=== PATIENT | female | born 1935 | race Hispanic/Latino ===

== ENCOUNTER 2017-11-21 15:07 | Inpatient (IN) | payer OTHER, MEDICARE ==
[~2017-11-21] VITALS: Ht 152.4 cm; Wt 45.4 kg
[2017-11-21 16:44] LABS: BASOPHILS % (AUTO) 0.1 % (0.0-5.0); EOSINOPHILS % (AUTO) 0.1 % (0.0-8.0); HEMATOCRIT 30.2 % (36-48); MEAN CORPUSCULAR HEMOGLOBIN 27.5 pg (27.0-33.0); MEAN CORPUSCULAR VOLUME 83.3 fL (79-99); MONOCYTES % (AUTO) 6.7 % (3.0-13.0); NEUTROPHILS % (AUTO) 86.1 % (40.0-77.0); PLATELET COUNT (AUTO) 329 K/uL (130-400); RED BLOOD CELL COUNT(AUTO) 3.63 MIL/uL (4.00-5.50); WHITE BLOOD COUNT (AUTO) 13.6 K/uL (4.8-10.8)
[2017-11-21 16:54] LABS: CREATININE 0.5 mg/dL (0.5-1.5); POTASSIUM 3.7 mmol/L (3.5-5.1)
[2017-11-21] MEDS ORDERED: KETOROLAC TROMETHAMINE 15MG/ML ONE (17:30)
[2017-11-21 17:51] LABS: APPEARANCE,URINE Clear (CLEAR); BILIRUBIN,URINE Negative (NEGATIVE); COLOR,URINE Yellow (YELLOW); GLUCOSE, URINE (UA) Negative (NEGATIVE); KETONES,URINE Negative (NEGATIVE); LEUKOCYTE ESTERASE ,URINE Negative (NEGATIVE); NITRATE,URINE Negative (NEGATIVE); OCCULT BLOOD,URINE Small (NEGATIVE); PROTEIN,URINE Negative (NEGATIVE); UROBILINOGEN,URINE 0.2 mg/dL (0.2-1.0)
[2017-11-21 18:06] LABS: BACTERIA,URINE None Seen /HPF (None Seen); RBC,URINE 0-1 /HPF (0-1); WBC,URINE 0-1 /HPF (0-1)
[2017-11-21 18:07] LABS: PARTIAL THROMBOPLASTIN TIME 25.2 SEC (26.3-35.5); PROTHROMBIN TIME 10.5 SEC (9.6-11.6)
[2017-11-21] MEDS ORDERED: LACTATED RINGERS 1000ML 1,000 ML IV ONE (20:04)
[2017-11-21] MEDS ORDERED: ONDANSETRON HCL 4 MG/2 ML VIAL ONE (22:24)
[2017-11-21] MEDS ORDERED: MORPHINE SULFATE 2 MG/ML 1ML SYG ONE (22:24)
[2017-11-21] MEDS ORDERED: ETOMIDATE 2 MG/ML 10 ML VIAL ONE (22:24)
[2017-11-22] VITALS (23 sets, daily range): BP systolic 92–165; BP diastolic 42–91
[2017-11-22] MEDS ORDERED: ONDANSETRON HCL MDV 20ML 2 MG/ML VIAL IVP PRN (04:00)
[2017-11-22] MEDS ORDERED: LACTATED RINGERS 1000ML 1,000 ML IV SCH ×2 (04:00→17:30)
[2017-11-22] MEDS: FAMOTIDINE/PF 20 MG/2 ML VIAL IV SCH (08:51)
[2017-11-22] MEDS ORDERED: GENTAMICIN SULFATE 80 MG in SODIUM CHLORIDE 0.9% 100 ML IV ONE (11:30)
[2017-11-22] MEDS ORDERED: CEFAZOLIN SODIUM 1 GM VIAL ONE (11:33)
[2017-11-22] MEDS ORDERED: ATOR10TA69 PO (11:52)
[2017-11-22] MEDS ORDERED: ERGO500014 PO (11:53)
[2017-11-22] MEDS ORDERED: MELO-106 PO (11:54)
[2017-11-22] MEDS ORDERED: GENTAMICIN 80 MG/NS 100 ML PB 100 ML IV ONE (11:55)
[2017-11-22 12:23] LABS: HEMATOCRIT 30.6 % (36-48)
[2017-11-22] MEDS ORDERED: ROPIVACAINE 0.5% 5MG/ML 30ML IJ ONE (12:23)
[2017-11-22] MEDS ORDERED: GLYCOPYRROLATE 0.2 MG/ML 5 ML VIAL ONE (12:54)
[2017-11-22] MEDS ORDERED: LIDOCAINE PF 2% 5ML ABBOJECT ONE (12:54)
[2017-11-22] MEDS ORDERED: ONDANSETRON HCL 4 MG/2 ML VIAL ONE (12:54)
[2017-11-22] MEDS ORDERED: DEXAMETHASONE SOD PHOSPHATE 10MG/ML 1ML VIAL ONE (12:54)
[2017-11-22] MEDS ORDERED: MIDAZOLAM HCL 1 MG/ML 2ML VIAL ONE (12:55)
[2017-11-22] MEDS ORDERED: FENTANYL CITRATE PF 50 MCG/1 ML 2ML VIAL ONE (12:58)
[2017-11-22] MEDS ORDERED: MEPERIDINE-PF 25 MG/ML SYG ONE (15:22)
[2017-11-22 16:05] LABS: HEMATOCRIT 25.3 % (36-48)
[2017-11-22] MEDS ORDERED: MAGNESIUM HYDROXIDE 30 ML/UDCUP PO PRN (17:30)
[2017-11-22] MEDS ORDERED: BISACODYL 10 MG SUPP.RECT RC PRN (17:30)
[2017-11-22] MEDS ORDERED: DEXTROSE 5%-LACTATED RINGERS 1,000 ML IV SCH (17:30)
[2017-11-22 19:04] LABS: HEMATOCRIT 28.9 % (36-48)
[2017-11-22] MEDS: CEFAZOLIN SODIUM 1 GM VIAL IVP SCH (20:59)
[2017-11-23] VITALS: BP 138/59
[2017-11-23 04:25] VITALS: BP 131/63
[2017-11-23] MEDS: CEFAZOLIN SODIUM 1 GM VIAL IVP SCH ×2 (04:34→12:00)
[2017-11-23] MEDS: KETOROLAC TROMETHAMINE 15MG/ML IV PRN ×2 (05:31→13:17)
[2017-11-23 05:49] LABS: HEMATOCRIT 26.8 % (36-48)
[2017-11-23 07:30] VITALS: BP 116/57
[2017-11-23] MEDS: ENOXAPARIN SODIUM 40 MG/0.4 ML SYRINGE SQ SCH (09:36)
[2017-11-23] MEDS: FAMOTIDINE/PF 20 MG/2 ML VIAL IV SCH (09:37)
[2017-11-23 11:00] VITALS: BP 125/69
[2017-11-23] MEDS ORDERED: CEFAZOLIN SODIUM 1 GM VIAL IVP SCH (13:05)
[2017-11-23 16:00] VITALS: BP 123/64
[2017-11-23] MEDS: IPRATROPIUM/ALBUTEROL SULFATE 3 ML SOLUTION IH SCH (19:13)
[2017-11-23 20:04] VITALS: BP 134/55
[2017-11-24] VITALS (7 sets, daily range): BP systolic 125–148; BP diastolic 58–78
[2017-11-24] MEDS: IPRATROPIUM/ALBUTEROL SULFATE 3 ML SOLUTION IH SCH ×4 (00:39→19:04)
[2017-11-24] MEDS: KETOROLAC TROMETHAMINE 15MG/ML IV PRN ×3 (01:03→17:20)
[2017-11-24 05:29] LABS: HEMATOCRIT 22.4 % (36-48)
[2017-11-24 05:47] LABS: CREATININE 0.6 mg/dL (0.5-1.5); POTASSIUM 3.7 mmol/L (3.5-5.1)
[2017-11-24] MEDS: ENOXAPARIN SODIUM 40 MG/0.4 ML SYRINGE SQ SCH (08:35)
[2017-11-24] MEDS: FAMOTIDINE/PF 20 MG/2 ML VIAL IV SCH (08:35)
[2017-11-24] MEDS: ACETAMINOPHEN 325 MG TAB PO PRN (17:20)
[2017-11-25] MEDS: IPRATROPIUM/ALBUTEROL SULFATE 3 ML SOLUTION IH SCH ×4 (01:14→19:17)
[2017-11-25 03:20] VITALS: BP 150/62
[2017-11-25] MEDS: KETOROLAC TROMETHAMINE 15MG/ML IV PRN ×2 (04:48→18:43)
[2017-11-25 05:34] LABS: HEMATOCRIT 25.8 % (36-48)
[2017-11-25 07:39] VITALS: BP 157/71
[2017-11-25] MEDS: MELOXICAM 7.5 MG TABLET PO SCH (08:26)
[2017-11-25] MEDS: ATORVASTATIN CALCIUM 10 MG TABLET PO SCH (08:26)
[2017-11-25] MEDS: ENOXAPARIN SODIUM 40 MG/0.4 ML SYRINGE SQ SCH (08:26)
[2017-11-25] MEDS: FAMOTIDINE/PF 20 MG/2 ML VIAL IV SCH (08:26)
[2017-11-25 11:01] VITALS: BP 149/73
[2017-11-25 16:29] VITALS: BP 144/92
[2017-11-25 19:20] VITALS: BP 151/62
[2017-11-25 23:15] VITALS: BP 156/76
[2017-11-26] MEDS: IPRATROPIUM/ALBUTEROL SULFATE 3 ML SOLUTION IH SCH ×3 (00:47→11:06)
[2017-11-26 03:50] VITALS: BP 138/65
[2017-11-26 08:00] VITALS: BP 139/65
[2017-11-26] MEDS: ATORVASTATIN CALCIUM 10 MG TABLET PO SCH (08:49)
[2017-11-26] MEDS: FAMOTIDINE/PF 20 MG/2 ML VIAL IV SCH (08:49)
[2017-11-26] MEDS: ENOXAPARIN SODIUM 40 MG/0.4 ML SYRINGE SQ SCH (08:49)
[2017-11-26] MEDS: ACETAMINOPHEN 325 MG TAB PO PRN (08:50)
[2017-11-26] MEDS: MELOXICAM 7.5 MG TABLET PO SCH (08:50)
[2017-11-26 11:25] VITALS: BP 104/67
[2017-11-26 16:59] VITALS: BP 159/76
[2017-12-01] MEDS ORDERED: ERGOCALCIFEROL (VITAMIN D2) 50,000 UNIT CAPSULE PO SCH (09:00)
== END 2017-11-26 18:52 | DRG 482 ==
LOC: EDH 15:07 → EDHIP 18:31 → 4BH 11-22 03:13
PROVIDERS: ADMIT Internal Medicine Critical Care Medicine; ATTEND Internal Medicine Critical Care Medicine
PROC: 0QS604Z Reposition Right Upper Femur with Internal Fixation Device, Open Approach (ICD-10-PCS; principal; 2017-11-22 13:38)
PROC: 30233N1 Transfusion of Nonautologous Red Blood Cells into Peripheral Vein, Percutaneous Approach (ICD-10-PCS; 2017-11-22 13:38)
DX: S72.141A Displaced intertrochanteric fracture of right femur, initial encounter for closed fracture (principal); D64.9 Anemia, unspecified; E11.9 Type 2 diabetes mellitus without complications; E86.0 Dehydration; F03.90 Unspecified dementia, unspecified severity, without behavioral disturbance, psychotic disturbance, mood disturbance, and anxiety; I10 Essential (primary) hypertension; W01.198A Fall on same level from slipping, tripping and stumbling with subsequent striking against other object, initial encounter; Y93.01 Activity, walking, marching and hiking; Y92.098 Other place in other non-institutional residence as the place of occurrence of the external cause; Y99.8 Other external cause status; Z90.710 Acquired absence of both cervix and uterus
CPT/HCPCS: 36415; 36430; 71045; 73521; 73552; 76000; 80048; 81001; 82948; 84484; 85014; 85018; 85025; 85610; 85730; 86850; 86900; 86901; 86922; 93005; 94640; 94664; 97039; A4218; A4344; C1713; J0690; J1100; J1580; J1650; J1885; J2001; J2175; J2250; J2405; J2795; J3010; J3490; J7120; P9016